=== PATIENT | female | born 1975 ===

== ENCOUNTER → 2018-03-10 | Outpatient (REF) | payer BC | LOC: M LAB REF 12:39 | DX: E04.2 Nontoxic multinodular goiter (principal) | CPT/HCPCS: 88173 ==

== ENCOUNTER → 2019-06-17 | Outpatient (REF) | payer BC | LOC: M LAB LCGH 12:29 | PROVIDERS: ATTEND Family Medicine | DX: Z00.00 Encounter for general adult medical examination without abnormal findings (principal) ==